=== PATIENT | female | born 1955 | race Caucasian/White ===

== ENCOUNTER → 2017-09-09 10:07 | Outpatient (CLI) | payer OTHER, SELFPAY ==
[2017-09-09 12:40] LABS: Anion Gap 7 (5-15); BUN 19 mg/dL (7-18); Calcium,Total 9.2 mg/dL (8.5-10.1); Chloride 108 mmol/L (98-107); Cholesterol 179 mg/dL (200); EST Glomerular Filtration Rate 67 mL/min (>60); Est Glom Filt Rate - Afr Amer 82 mL/min (>60); Glucose 88 mg/dL (74-106); High Density Lipoprotein 48 mg/dL; Potassium 4.2 mmol/L (3.5-5.1); Sodium Level 143 mmol/L (136-145); Triglycerides 62 mg/dL; Very Low Density Lipoprotein 12 mg/dL (5-40)
== END ==
PROVIDERS: Family Provider Family Medicine; PCP Family Medicine; Visit Provider Family Medicine
DX: R94.8 Abnormal results of function studies of other organs and systems (principal)
CPT/HCPCS: 36415; 80048; 80061

== ENCOUNTER → 2017-09-24 08:12 | Outpatient (CLI) | payer OTHER, SELFPAY | PROVIDERS: Family Provider Family Medicine; PCP Family Medicine; Visit Provider Family Medicine | DX: R94.8 Abnormal results of function studies of other organs and systems (principal) | CPT/HCPCS: 77080 ==

== ENCOUNTER → 2018-09-01 10:10 | Outpatient (CLI) | payer SELFPAY ==
--- NOTE | 2018-09-01 10:22 | MRI_ITS ---
HISTORY: HAHeadache, no response to antibiotic treatment x 6 weeks, h/o melanoma EXAMINATION: MR Brain W/O Contrast TECHNIQUE: Multiplanar and multisequence MR images of the brain were obtained without gadolinium. IV Contrast dosage and agent: None. COMPARISON: 06/23/16 MRI brain. FINDINGS: PARANASAL SINUSES AND MASTOID AIR CELLS: Clear. CALVARIUM: Unremarkable. INTRACRANIAL HEMORRHAGE: No evidence of intracranial hemorrhage. BRAIN PARENCHYMA: No acute infarct. Cerebrum, cerebellum and brainstem are unremarkable. Normal sella turcica, pituitary gland, infundibular stalk, optic chiasm and hypothalamus. The internal auditory canals are patent. No mass effect or midline shift. CSF SPACES: Appropriate for age. There is no hydrocephalus. Patent basal cisterns. VASCULAR SYSTEM: Normal flow voids in the major intracranial circulation. ORBITS: Both globes, extraocular muscles, optic nerves and retrobulbar fat appear unremarkable. MRI/Brain without Contrast IMPRESSION: Negative MRI Brain without contrast. No etiology for headache identified. at 1129 Reported and signed by: Niraj Franz MD Electronically Signed: Niraj Franz, at 11:28 EDT Tel , Service support ,
== END ==
PROVIDERS: Family Provider Family Medicine; PCP Family Medicine; Referring Provider Family Medicine; Visit Provider Family Medicine
DX: R51 Headache (principal)
CPT/HCPCS: 70551

== ENCOUNTER 2018-09-12 15:42 | Emergency (ER) | payer OTHER, SELFPAY ==
[2018-09-12 15:43] VITALS: BP 110/73; PULSE 79; RESP 14; TEMP 36.3; O2SAT 95; BMI 18.6
--- NOTE | 2018-09-12 16:19 | ED.DCSUM_ITS ---
History of Present Illness Chief Complaint: Head Injury Informant: Patient Onset: Today Context: Sudden Onset Current Severity: Mild Maximum Severity: Mild Narrative: The patient presents to the emergency department laceration on her posterior scalp. She states that she was doing gardening today. She states that she jumped on a shovel, it hit hard ground, she fell backwards. She struck her head against the ground. She did not lose consciousness. She denies any headaches, change in vision, nausea, vomiting. She is not on anticoagulants. Her last tetanus was within the past year. She states that she had some bleeding from the back of her scalp and presented to be evaluated. She denies other injury. Prior similar symptoms: No Recent Illness/Hospitalization: No Past Medical History - Allergies and Home Meds Allergies/Adverse Reactions: Allergies Sulfa (Sulfonamide Antibiotics) Allergy (Verified 09/12/18 15:44) Hives Primary Care Physician: Tu Lyle MD [Primary Care Provider] - Prior records reviewed: Yes Surgical History: no surgical history Lives: With Family Smoking Status: Never smoker Review of Systems General: Denies: Chills, Fever, Sweats Eyes: Denies: Visual changes - bilaterally, Diplopia ENT: Denies: Rhinorrhea, Sore throat Cardiovascular: Denies: Chest pain, Palpitations Respiratory: Denies: Dyspnea, Cough, Dyspnea on exertion Gastrointestinal: Denies: Abdominal pain, Nausea, Vomiting, Diarrhea, Melena, Hematochezia Genitourinary: Denies: Dysuria, Hematuria, Frequency Musculoskeletal: Denies: Back pain, Extremity Pain Skin: Denies: Rash, Wounds Neurological: Denies: Headache, Weakness, Numbness Physical Exam Vital Signs/Narrative: Vital Signs Temp Pulse Resp BP Pulse Ox 09/12/18 15:43 97.4 F L 79 14 110/73 95 Inital Vital Signs reviewed: Yes General: Well nourished, Well developed, No Acute Distress Head: Normocephalic, Trauma - 0.5 cm laceration to the posterior occiput. No step-off. Small hematoma. Eyes: Perrl, EOMI ENT: Moist mucous membranes, No rhinorrhea Neck: Supple, Nontender Cardiovascular: Regular rate, Regular rhythm, No murmurs Respiratory: No distress, CTA bilaterally, Chest nontender Abdomen: Soft, Nontender, Nondistended, Normal bowel sounds Back: Nontender, Normal Inspection Extremities: Nontender, No edema Skin: Normal color, No rash Neurological: Alert, Oriented x3, Cranial nerves II-XII grossly intact, Normal Strength, Normal Sensation Psychological: Normal affect, Normal Mood Diagnostic/Tx/Re-eval - Medical Decision Making The patient presents with a small laceration after head injury. She had no loss of consciousness. She is a GCS of 15. She has no distracting injury. Based on [place] head CT rules, I do not feel that imaging is necessary. Her tetanus is already up-to-date. The wound was anesthetized with lidocaine with epinephrine. It was cleaned. It was closed with one gut suture. She tolerated this without issue. She was counseled on local wound care. She will be discharged home. Impression 1. 0.5 cm scalp laceration with repair Procedures - Lacerations No standard instances Depth: Skin Shape: Linear Prep: Sterile Conditions, Shnancy-Clens Laceration repair: Irrigated, Lidocaine with epi, Skin sutures Irrigated (ml): 200 Number of Sutures/Norm: 1 Suture Information: Vicryl, 5-0 ED Disposition - Plan for ED Patient: Disposition: Home or Assisted Living Instructions: LACERATION, Scalp Referrals: Tu Lyle MD [Primary Care Provider] -
== END 2018-09-12 16:28 | disposition home or self-care (01) ==
LOC: ED 15:58
PROVIDERS: Emergency Provider Emergency Medicine; Family Provider Family Medicine; PCP Family Medicine
DX: S01.01XA Laceration without foreign body of scalp, initial encounter (principal); W18.39XA Other fall on same level, initial encounter; Y93.H2 Activity, gardening and landscaping; Y92.9 Unspecified place or not applicable
CPT/HCPCS: 12001; 99283

== ENCOUNTER → 2018-10-12 14:15 | Outpatient (CLI) | payer OTHER, SELFPAY ==
[2018-09-12 15:43] VITALS: BMI 18.6
== END ==
PROVIDERS: Family Provider Family Medicine; PCP Family Medicine; Referring Provider Family Medicine; Visit Provider Family Medicine
DX: R30.0 Dysuria (principal)
CPT/HCPCS: 87086

== ENCOUNTER → 2019-03-07 17:31 | Outpatient (CLI) | payer OTHER, SELFPAY | PROVIDERS: PCP Family Medicine; Visit Provider Nurse Practitioner Family | DX: R35.0 Frequency of micturition (principal) | CPT/HCPCS: 87086; 87088 ==

== ENCOUNTER → 2020-09-05 10:13 | Outpatient (CLI) | payer OTHER, SELFPAY ==
[2020-09-05 12:26] LABS: Absolute Lymphocyte Count 1.89 X10^3/uL (0.83-4.51); Absolute Neutrophil Count 3.4 X10^3/uL (2.0-7.7); Basophil# 0.03 X10^3/uL; Basophil% 0.5 % (0-1); Eosinophil# 0.19 X10^3/uL; Eosinophils% 3.2 % (0-5); Hematocrit 41.8 % (37-47); Hemoglobin 13.3 g/dL (12.0-15.0); Lymphocyte # 1.89 X10^3/ul (0.83-4.51); Mean Corp Hgb Conc 31.8 g/dL (32-36); Mean Corpuscular Hgb 28.4 pg (27.0-32.0); Mean Corpuscular Volume 89.1 fL (81-99); Mean Platelet Vol. 11.4 fl (6.2-12.0); Monocyte# 0.42 X10^3/uL; Monocyte% 7.1 % (0-10); NRBC Flagged by Analyzer 0 % (0-5); Neutrophil # 3.37 X10^3/uL (2.7-7.7); Platelet Count 106 K/mm3 (150-450); RBC Distribution Width CV 13.2 % (11.6-14.6); RBC Distribution Width SD 43.1 fl (35.1-43.9); Red Blood Count 4.69 M/mm3 (4.2-5.4); White Blood Count 5.9 K/mm3 (4.4-11.0)
[2020-09-05 12:50] LABS: ALB/GLOB Ratio 1.4 RATIO (0.9-2.4); AST(SGOT) 19 U/L (15-37); Alanine Aminotransfer ALT/SGPT 32 U/L (13-56); Alkaline Phosphatase 71 U/L (45-117); Anion Gap 4 (5-15); BUN 13 mg/dL (7-18); BUN/Creat Ratio 15.4 RATIO (10-20); Chloride 106 mmol/L (98-107); Cholesterol 208 mg/dL (200); Creatinine, Serum 0.84 mg/dL (0.55-1.02); EST Glomerular Filtration Rate 72 mL/min (>60); Est Glom Filt Rate - Afr Amer 88 mL/min (>60); Globulin 2.8 g/dL (2.2-4.2); Glucose 94 mg/dL (74-106); High Density Lipoprotein 45 mg/dL; Magnesium 2.4 mg/dL (1.6-2.6); Potassium 4.3 mmol/L (3.5-5.1); Protein, Total 6.8 g/dL (6.4-8.2); Sodium Level 140 mmol/L (136-145); Thyroid Stim Hormone (TSH) 1.56 uIU/mL (0.358-3.74); Triglycerides 109 mg/dL; Very Low Density Lipoprotein 22 mg/dL (5-40)
== END ==
PROVIDERS: PCP Family Medicine; Visit Provider Family Medicine
DX: Z13.220 Encounter for screening for lipoid disorders (principal); R55 Syncope and collapse
CPT/HCPCS: 36415; 80053; 80061; 83735; 84443; 85025

== ENCOUNTER → 2020-09-18 08:58 | Outpatient (CLI) | payer OTHER, SELFPAY ==
--- NOTE | 2020-09-18 17:29 | PCM.TILTTABL ---
Staff Staff: Jazz Peña and - (Gillian Goel) Summary Pre Test Resting HR: 88 Pre Test Resting BP: 127/68 Minimum Test HR: 47 Maximum Test HR: 116 Minimum Test BP: 0/0 Maximum Test BP: 127/68 Reason for Test Termination: Syncope Physician Tilt Table Report Patient's Physicians Primary Care Physician: Tu Lyle Indications/Diagnosis: Syncope Procedure Comments: The patient presented to the tilt table laboratory and was awake and alert and warm and dry. The baseline heart rate was 88 bpm with a baseline blood pressure 127/68 mmHg. The cardiac rhythm was sinus rhythm. The patient was placed in the 70 degree upright tilt table position for approximately 6 minutes. The patient was initially awake and alert and warm and dry. The initial heart rate was 84 bpm with a blood pressure 127/68 mmHg. The cardiac rhythm was sinus rhythm. The patient subsequently noted feeling like a hot flash , as well as feeling dizzy, and the sensation of going to pass out . The patient was subsequently noted to have a decline in heart rate to 47 bpm with an unobtainable blood pressure and appearing diaphoretic and lost consciousness. The cardiac rhythm was noted to be a marked sinus bradycardia/transient junctional rhythm with occasional premature supraventricular ectopic complexes. The patient was returned to the supine position. In the supine position the patient became awake and alert. The heart rate was 51 bpm with a blood pressure of 68/50 mmHg. The cardiac rhythm was sinus rhythm. The patient received IV fluids. The patient was monitored and was subsequently awake and alert and warm and dry. The heart rate was 73 bpm with a blood pressure 109/64 mmHg. The cardiac rhythm remains sinus rhythm. The patient was reported as having returned to her baseline status. She was subsequently released from the tilt table laboratory. Summary: 70 degree upright tilt table study considered abnormal and positive for vasovagal/neurocardiogenic (cardioinhibitory and vasodepressor) syncope. This note was generated using a voice recognition system and there may be incorrect words, spelling or punctuation that were not noted when reviewing the office note prior to saving.
[2020-09-18 17:36] VITALS: BP 0/0; BP 127/68
== END ==
PROVIDERS: PCP Family Medicine; Referring Provider Family Medicine; Visit Provider Family Medicine
DX: R55 Syncope and collapse (principal)
CPT/HCPCS: 93660; J7040; A4216

== ENCOUNTER → 2021-01-14 18:16 | Outpatient (CLI) | payer OTHER, SELFPAY | PROVIDERS: PCP Family Medicine; Referring Provider Family Medicine; Visit Provider Family Medicine | DX: R30.0 Dysuria (principal) | CPT/HCPCS: 87086; 87088 ==

== ENCOUNTER 2021-05-09 18:05 | Outpatient (CLI) | payer BC, SELFPAY | END 2021-05-09 23:59 | disposition home or self-care (01) | PROVIDERS: PCP Family Medicine; Visit Provider Family Medicine | DX: N39.0 Urinary tract infection, site not specified (principal) | CPT/HCPCS: 87086 ==

== ENCOUNTER 2021-05-20 15:06 | Outpatient (CLI) | payer BC, SELFPAY | END 2021-05-20 23:59 | disposition home or self-care (01) | LOC: LABSPEC 15:08 | PROVIDERS: PCP Family Medicine; Visit Provider Family Medicine | DX: R30.0 Dysuria (principal) | CPT/HCPCS: 87077; 87086; 87088; 87186 ==

== ENCOUNTER 2021-09-25 07:46 | Day surgery (SDC) | payer BC, SELFPAY ==
[2021-09-25] VITALS (7 sets, daily range): BP systolic 97–111; BP diastolic 67–80; PULSE 84–93; RESP 14–18; TEMP 36.3–36.6; O2SAT 98–100; BMI 17.9
[2021-09-25] MEDS: Lactated Ringers 1,000 ML 15 ML IV (08:00)
--- NOTE | 2021-09-25 08:39 | H&P.OPEN ---
HPI - General HPI Narrative MARITZA MC, is a 66 F who presents for screening colonoscopy. Patient's last colonoscopy was in 2011 negative per patient. Patient denies any family history of colon cancer. Patient has bowel movements daily denies any blood. Patient denies any chronic abdominal pain/nausea/vomiting/reflux. [facility] Medical History (Updated 09/23/21 @ 11:49 by Ashlee Weber) Back pain Cancer Head ache Loss of consciousness Non-smoker Peripheral neuropathy Post-menopausal Tilt table evaluation Vasovagal syncope Wears glasses Home Medications nortriptyline 10 mg capsule 30 mg PO QHS 05/30/21 [History Last Taken Unknown] alendronate 70 mg tablet (Fosamax) 70 mg PO BRADLEY 08/05/21 [History Last Taken Unknown] alpha lipoic acid 600 mg capsule 600 mg PO BID 08/05/21 [History Last Taken Unknown] ascorbic acid (vitamin C) 1,000 mg capsule,extended release 1,000 cap PO DAILY 08/05/21 [History Last Taken Unknown] Lactobacillus 40-Bifidobact 3-S.thermophilus 100 billion cell capsule (Probiotic) 1 cap PO DAILY bowel health 09/23/21 [History Last Taken Unknown] d-mannose 500 mg capsule 500 mg PO DAILY frequent UTI 09/23/21 [History Last Taken Unknown] Allergy/AdvReac Type Severity Reaction Status Date / Time Sulfa (Sulfonamide Allergy Hives Verified 09/25/21 08:11 Antibiotics) Surgical History (Updated 08/05/21 @ 09:55 by Milagros Mtz) Hx of colonoscopy Hx of wisdom tooth extraction Social History Smoking Status: Never smoker Past Medical/Surgical History Planned Operation Planned Operative Procedure/s: CSCOPE OA Previous Hospitalizations/Surgeries HX Hospitalizations: No Any Problems With Anesthesia: No You/Your Family Experience Fever (Hyperthermia) With Anes: No Cholinesterase deficiency: No Cardiovascular Hx of Irregular Heartbeat and/or Afib: No Hx Heart Attack: No Hx Congestive Heart Failure: No Hx Hypertension: No Hx Pacemaker: No Respiratory Hx Chronic Obstructive Pulmonary Disease (COPD): No Hx Asthma: No Hx Emphysema: No Hx Sleep Apnea: No Hx Respiratory Tract Infection/Cold (presently): No Do You Snore Loudly (louder than talking or can be heard): No Do You Often Feel Tired/ Fatigued/ Sleepy Dring Daytime?: No Has Anyone Observed You Stop Breathing During Sleep?: No Result (for STOP score): Negative Smoking Status: Never smoker Gastrointestinal Hx Gastroesophageal Reflux: No Hx Ulcer: No Neurological Hx Seizures: No Hx Head/Neck Injury: No Hx Headaches: Yes Hx Back Injury/Pain: No Does patient have nerve stimulator: No Reproduction : No Miscellaneous Recent Exposure to Contagious Disease: No Allergies Sulfa (Sulfonamide Antibiotics) Allergy (Verified 09/25/21 08:11) Hives Discharge Is Pt Admitted From a Care Home, or a Senior Living: No After D/C, Where Do you Plan to Go: Return Home Vital Signs Vital Signs Vital Signs: 09/25/21 08:11 09/25/21 08:11 Temperature 97.5 F L Temperature Source Temporal Pulse Rate 93 Respiratory Rate 18 Respiratory Pattern Normal Blood Pressure 111/80 Blood Pressure Mean 90 Blood Pressure Source Monitor Blood Pressure Position Semi-Fowlers Blood Pressure Location Left Arm Pulse Ox 100 Oxygen Delivery Method Room Air Weight Weight: 101 lb 6.602 oz Body Mass Index (BMI) 17.9 Physical Exam Const alert, oriented x3 and no apparent distress HEENT normocephalic and head/scalp atraumatic Resp normal respiratory effort Cardio regular rate GI soft to palpation and non-tender; Negative for non-distended Palpation: Negative for guarding Extremity no clubbing, cyanosis or edema Neuro CN's II-XII intact bilaterally Psych mental status grossly normal Assessment & Plan Assessment/Plan (1) Encounter for screening for malignant neoplasm of colon: Procedure Criteria Type of Procedure Procedure Type: Elective Elective Risks - COVID COVID Risk Discussion: The surgeon/proceduralist and patient have discussed in detail the risk of exposure to and/or potential harm posed by the COVID-19 virus with having a surgery/procedure at this time versus the risk of delaying the surgery/procedure. It is not possible to know either the risk of delaying the surgery or procedure or chance of getting an infection with perfect accuracy, but a joint decision was made between the patient and the surgeon/proceduralist to proceed at this time with the scheduled surgery/procedure as indicated on the consent form. Surgery Risks - Colonoscopy Risks Include but are not Limited To: Risks include but are not limited to: Bleeding, perforation requiring further surgery, inability to complete colonoscopy requiring barium enema.
--- NOTE | 2021-09-25 09:00 | COLBX_PTH ---
PATIENT: MARITZA MC LOC: EN U#:[id number] AGE/SX: 66/F ROOM: RE09/25/[address]: Dr. Alice Yancey MD : 1955 BED: DIS: 09/25/2021 SPEC #: [id number] RECD: 09/25/21 11:04 STATUS: JASON ANA #: [id number] HEMA: 09/25/21 09:[address]: Alice Yancey DEPT: SURGICAL PATHOLOGY RECD BY: Lilo Morales ENTERED: 09/25/21 11:44 SP TYPE: COLON BX OTHR DR: Dr. Tu Lyle MD Tissues: Transverse colon Procedures: Surgery Specimen Level IV HEADER OPERATION: Colonoscopy ? open access (MAC) with biopsy PRE-OP DIAGNOSIS: Screening TISSUE SUBMITTED: Biopsy of transverse colon polyp MICROSCOPIC DIAGNOSIS Transverse colon polyp, biopsy: Hyperplastic polyp. AM:kathleen 09/26/2021 MICROSCOPIC DESCRIPTION Slides are reviewed. GROSS DESCRIPTION Received in fixative is one container labeled with the patient's name and designated biopsy of transverse colon polyp. The specimen consists of one irregular fragment of light saldana soft tissue that measures 0.3 x 0.2 x 0.1 cm. The specimen is totally submitted in one cassette. / SJ:rg 09/25/2021 TC:5 CPT: 48601
--- NOTE | 2021-09-25 09:37 | OP.COLON_ITS ---
Patient Name: Bobbi Jain Procedure Date: 09/25/2021 8:47 AM Date of : 1955 Age: 66 Procedure: Colonoscopy Indications: Screening for colorectal malignant neoplasm Providers: Alice Yancey MD Medicines: Monitored Anesthesia Care Patient Profile: This is a 66 year old female. Last Colonoscopy: 2011. Complications: No immediate complications. Procedure: Pre-Anesthesia Assessment: - Prior to the procedure, a History and Physical was performed, and patient medications and allergies were reviewed. The patient's tolerance of previous anesthesia was also reviewed. The risks and benefits of the procedure and the sedation options and risks were discussed with the patient. All questions were answered, and informed consent was obtained. Prior Anticoagulants: The patient has taken no previous anticoagulant or antiplatelet agents. ASA Grade Assessment: Per anesthesia. After reviewing the risks and benefits, the patient was deemed in satisfactory condition to undergo the procedure. After I obtained informed consent, the scope was passed under direct vision. Throughout the procedure, the patient's blood pressure, pulse, and oxygen saturations were monitored continuously. The Colonoscope was introduced through the anus and advanced to the cecum, identified by the appendiceal orifice, ileocecal valve and palpation. The colonoscopy was technically difficult and complex due to a tortuous colon. Successful completion of the procedure was aided by applying abdominal pressure. The patient tolerated the procedure well. The quality of the bowel preparation was good. Scope In: 8:56:12 AM Scope Withdrawal Time 0 hours 13 minutes 44 seconds Scope Out: 9:30:59 AM Total Procedure Duration Time 0 hours 34 minutes 47 seconds Findings: The perianal and digital rectal examinations were normal. A less than 5 mm polyp was found in the transverse colon. The polyp was sessile. The polyp was removed with a cold biopsy forceps. Resection and retrieval were complete. The exam was otherwise without abnormality on direct and retroflexion views. Impression: - One less than 5 mm polyp in the transverse colon, removed with a cold biopsy forceps. Resected and retrieved. - The examination was otherwise normal on direct and retroflexion views. Recommendation: - Discharge patient to home. - Resume previous diet. - Continue present medications. - Await pathology results. - Repeat colonoscopy in 5-10 years for surveillance based on pathology results. Procedure Code(s): --- Professional --- 43042, PT, Colonoscopy, flexible; with biopsy, single or multiple Diagnosis Code(s): --- Professional --- Z12.11, Encounter for screening for malignant neoplasm of colon D12.3, Benign neoplasm of transverse colon (hepatic flexure or splenic flexure) CPT copyright 2017 [employer]. All rights reserved. The codes documented in this report are preliminary and upon print operator review may be revised to meet current compliance requirements. MD Alice Abdul MD 09/25/2021 9:37:17 AM This report has been signed electronically. Number of Addenda: 0 Note Initiated On: 09/25/2021 8:47 AM
--- NOTE | 2021-09-25 09:38 | OP.CCLET_ITS ---
09/25/2021 Tu Lyle MD [address] [place] [address] Re : Colonoscopy procedure for Bobbi Jain Dear Dr. Lyle This procedure was performed on Saturday, September 25, 2021. My impressions and recommendations are as follows: Impressions : - One less than 5 mm polyp in the transverse colon, removed with a cold biopsy forceps. Resected and retrieved. - The examination was otherwise normal on direct and retroflexion views. Recommendations : - Discharge patient to home. - Resume previous diet. - Continue present medications. - Await pathology results. - Repeat colonoscopy in 5-10 years for surveillance based on pathology results. My findings are described in the full procedure note, which is enclosed. If I can be of further assistance, please feel free to contact me at Doctor phone number(s): , Work: . Sincerely, MD Alice Abdul MD 09/25/2021 9:37:17 AM This report has been signed electronically.
== END 2021-09-25 10:31 | disposition home or self-care (01) ==
LOC: EN 07:51 → AC 07:52
PROVIDERS: PCP Family Medicine; Referring Provider Family Medicine; Visit Provider Surgery
PROC: 0DJD8ZZ Inspection of Lower Intestinal Tract, Via Natural or Artificial Opening Endoscopic (ICD-10-PCS; CPT 45378; principal; 2021-09-25 08:55)
DX: Z12.11 Encounter for screening for malignant neoplasm of colon (principal); K63.5 Polyp of colon; Q43.8 Other specified congenital malformations of intestine
CPT/HCPCS: 45380; 88305; J7120; J2405

== ENCOUNTER → 2021-12-24 | Outpatient (CLI) | payer BC, SELFPAY ==
[2021-12-24 17:57] LABS: Mucous, Urine 0 SEEN /hpf (<or=2+); Red Blood Cells-Urine 0 SEEN /hpf (0-5); Squamous Epithelial Cells - UA 0 SEEN /hpf (5-10)
[2021-12-24 18:29] LABS: Color, Urine Yellow (Yellow); Glucose, Dipstick Normal (Normal); Ketone-Dipstick Negative (Negative); Leukocyte Esterase-Dipstick 500 /ul (Negative); Nitrite-Dipstick Negative (Negative); Occult Blood-Urine 25 /ul (Negative); Protein-Dipstick Negative (Negative); Urine Bilirubin Dipstick Negative (Negative); Urine Clarity Clear (Clear); Urine Urobilinogen Normal (Normal)
[2021-12-24 18:41] LABS: Bacteria RARE /hpf (None Seen); White Blood Cells 5-10 SEEN /hpf (0-5)
== END | disposition home or self-care (01) ==
PROVIDERS: PCP Family Medicine; Visit Provider Nurse Practitioner Family
DX: R39.89 Other symptoms and signs involving the genitourinary system (principal)
CPT/HCPCS: 81001; 87086

== ENCOUNTER → 2022-01-23 | Outpatient (CLI) | payer BC, SELFPAY ==
[2022-01-23 18:08] LABS: Vitamin D,25 Hydroxy 24.4 ng/mL
[2022-01-23 18:12] LABS: Anion Gap 6 (5-15); BUN 18 mg/dL (7-18); BUN/Creat Ratio 20.3 RATIO (10-20); Calcium,Total 9.2 mg/dL (8.5-10.1); Chloride 105 mmol/L (98-107); Cholesterol 210 mg/dL (200); Creatinine, Serum 0.89 mg/dL (0.55-1.02); EST Glomerular Filtration Rate 68 mL/min (>60); Est Glom Filt Rate - Afr Amer 82 mL/min (>60); Glucose 89 mg/dL (74-106); High Density Lipoprotein 43 mg/dL; Potassium 4.8 mmol/L (3.5-5.1); Sodium Level 139 mmol/L (136-145); Triglycerides 115 mg/dL; Very Low Density Lipoprotein 23 mg/dL (5-40)
== END | disposition home or self-care (01) ==
LOC: MFPLAB 14:55
PROVIDERS: PCP Family Medicine; Referring Provider Family Medicine; Visit Provider Family Medicine
DX: Z00.00 Encounter for general adult medical examination without abnormal findings (principal)
CPT/HCPCS: 36415; 80048; 80061; 82306

== ENCOUNTER → 2022-02-19 | Outpatient (CLI) | payer BC, SELFPAY ==
--- NOTE | 2022-02-19 10:52 | BD_ITS ---
STUDY: DUAL ENERGY X-RAY ABSORPTIOMETRY / DXA REASON FOR EXAM: Female, 66 years old. Z780 TECHNIQUE: Bone Mineral Density (BMD) measurements of lumbar spine and bilateral hips were obtained. COMPARISON: Comparison is made with prior study dated 09/24/2017. FINDINGS: Lumbar Spine (L1-L4): g/cm2 (0.722) / T-score (-3.4) / Z-score (-1.6) Findings are suggestive of osteoporosis with a high fracture risk. Left Femur Total: g/cm2 (0.724) / T-score (-1.8) / Z-score (-0.6) Left Femoral Neck: g/cm2 (0.668) / T-score (-1.6) / Z-score (-0.1) Right Femur Total: g/cm2 (0.734) / T-score (-1.7) / Z-score (-0.5) Right Femoral Neck: g/cm2 (0.672) / T-score (-1.6) / Z-score (-0.1) The T-Scores on the most recent prior examination were: Lumbar Spine (L1-L4): There has been worsening of bone density since the previous examination. Left Femur Total: which represents an improvement of 4.8%. Right Femur Total: which represents an improvement of 4.7%. BD/Dexa Bone Density Study IMPRESSION: The patient is considered osteoporotic as outlined below according to World Wil Organization (WHO) criteria with a high fracture risk. There has been improvement of bone density since the previous examination. Reference Information: The T-score is the number of standard deviations above or below the standard which is normal for young adults at their peak bone mineral density. The World Health Organization (WHO) interprets the T-scores as follows: Above -1 Normal bone density Between -1 and -2.5 Osteopenia Equal to / or below -2.5 Osteoporosis As a practical clinical guideline, osteopenia may be graded as follows: Mild -1 through -1.5 Moderate -1.6 through -2.0 Severe -2.1 through -2.4 The Z-score is the number of standard deviations above or below age-matched controls. A Z-score of less than -1.5 would be considered abnormal. References: 1. NIH Osteoporosis and Related Bone Diseases www osteo.org 2. International Society for Clinical Densitometry www iscd.org 3. National Osteoporosis Foundation www nof.org Electronically Signed: Serafin Tejeda MD at 11:03 EST ,
== END | disposition home or self-care (01) ==
PROVIDERS: PCP Family Medicine; Visit Provider Family Medicine
DX: Z00.00 Encounter for general adult medical examination without abnormal findings (principal); M85.80 Other specified disorders of bone density and structure, unspecified site; M81.0 Age-related osteoporosis without current pathological fracture
CPT/HCPCS: 77080

== ENCOUNTER → 2022-06-10 | Outpatient (CLI) | payer MEDICARE, OTHER, SELFPAY ==
[2022-06-10 13:35] LABS: Vitamin D,25 Hydroxy 59.7 ng/mL
[2022-06-10 13:57] LABS: ALB/GLOB Ratio 1.4 RATIO (0.9-2.4); AST(SGOT) 19 U/L (15-37); Alanine Aminotransfer ALT/SGPT 25 U/L (13-56); Albumin, Serum 4.2 g/dL (3.2-5.0); Alkaline Phosphatase 68 U/L (45-117); Anion Gap 3 (5-15); BUN 16 mg/dL (7-18); BUN/Creat Ratio 18.6 RATIO (10-20); Calcium,Total 8.7 mg/dL (8.5-10.1); Chloride 105 mmol/L (98-107); Cholesterol 194 mg/dL (200); Creatinine, Serum 0.86 mg/dL (0.55-1.02); EST Glomerular Filtration Rate 70 mL/min (>60); Est Glom Filt Rate - Afr Amer 85 mL/min (>60); Globulin 3.1 g/dL (2.2-4.2); Glucose 91 mg/dL (74-106); High Density Lipoprotein 46 mg/dL; Potassium 3.7 mmol/L (3.5-5.1); Protein, Total 7.3 g/dL (6.4-8.2); Sodium Level 136 mmol/L (136-145); Thyroid Stim Hormone (TSH) 1.75 uIU/mL (0.358-3.74); Triglycerides 155 mg/dL; Very Low Density Lipoprotein 31 mg/dL (5-40)
== END | disposition home or self-care (01) ==
LOC: BIMLAB 09:35
PROVIDERS: PCP Family Medicine; Visit Provider Internal Medicine Endocrinology, Diabetes & Metabolism
DX: M81.0 Age-related osteoporosis without current pathological fracture (principal); E55.9 Vitamin D deficiency, unspecified; I10 Essential (primary) hypertension
CPT/HCPCS: 36415; 80053; 80061; 82306; 84443

== ENCOUNTER 2022-06-23 14:26 | Outpatient (CLI) | payer MEDICARE, OTHER, SELFPAY ==
[2022-06-23 14:45] VITALS: BP 106/67; PULSE 74; RESP 16; TEMP 36.6; O2SAT 100; BMI 18.6
[2022-06-23] MEDS: Romosozumab-AQQG 210 MG/2.34 ML Syringe SQ (14:52)
== END 2022-06-23 14:27 | disposition home or self-care (01) ==
PROVIDERS: PCP Family Medicine; Referring Provider Internal Medicine Endocrinology, Diabetes & Metabolism; Visit Provider Internal Medicine Endocrinology, Diabetes & Metabolism
DX: M81.0 Age-related osteoporosis without current pathological fracture (principal); E55.9 Vitamin D deficiency, unspecified
CPT/HCPCS: 96372; J3111

== ENCOUNTER 2022-07-21 14:21 | Outpatient (CLI) | payer MEDICARE, OTHER, SELFPAY ==
[2022-07-21 14:42] VITALS: BP 110/64; PULSE 71; RESP 16; TEMP 35.9; O2SAT 98; BMI 18.6
[2022-07-21] MEDS: Romosozumab-AQQG 210 MG/2.34 ML Syringe SQ (14:45)
== END 2022-07-21 14:22 | disposition home or self-care (01) ==
PROVIDERS: PCP Family Medicine; Referring Provider Internal Medicine Endocrinology, Diabetes & Metabolism; Visit Provider Internal Medicine Endocrinology, Diabetes & Metabolism
DX: M81.0 Age-related osteoporosis without current pathological fracture (principal); E55.9 Vitamin D deficiency, unspecified
CPT/HCPCS: 96372; J3111

== ENCOUNTER 2022-08-22 11:25 | Outpatient (CLI) | payer MEDICARE, OTHER, SELFPAY ==
[2022-08-22 11:39] VITALS: BP 94/65; PULSE 79; RESP 16; TEMP 36.5; O2SAT 97; BMI 18.6
[2022-08-22] MEDS: Romosozumab-AQQG 210 MG/2.34 ML Syringe SQ (11:42)
== END 2022-08-22 11:26 | disposition home or self-care (01) ==
LOC: MEDOUTP 11:25
PROVIDERS: PCP Family Medicine; Referring Provider Internal Medicine Endocrinology, Diabetes & Metabolism; Visit Provider Internal Medicine Endocrinology, Diabetes & Metabolism
DX: M81.0 Age-related osteoporosis without current pathological fracture (principal); E55.9 Vitamin D deficiency, unspecified
CPT/HCPCS: 96372; J3111

== ENCOUNTER → 2022-09-02 | Outpatient (CLI) | payer MEDICARE, OTHER, SELFPAY | END | disposition home or self-care (01) | LOC: LABSPEC 15:46 | PROVIDERS: PCP Family Medicine; Referring Provider Family Medicine; Visit Provider Family Medicine | DX: R39.89 Other symptoms and signs involving the genitourinary system (principal) | CPT/HCPCS: 87086; 87088 ==

== ENCOUNTER 2022-09-18 09:57 | Outpatient (CLI) | payer MEDICARE, OTHER, SELFPAY ==
[2022-09-18 10:07] VITALS: BP 108/65; PULSE 81; RESP 16; O2SAT 97; BMI 17.6
[2022-09-18] MEDS: Romosozumab-AQQG 210 MG/2.34 ML Syringe SQ (10:13)
== END 2022-09-18 09:58 | disposition home or self-care (01) ==
LOC: MEDOUTP 09:57
PROVIDERS: PCP Family Medicine; Referring Provider Internal Medicine Endocrinology, Diabetes & Metabolism; Visit Provider Internal Medicine Endocrinology, Diabetes & Metabolism
DX: M81.0 Age-related osteoporosis without current pathological fracture (principal); E55.9 Vitamin D deficiency, unspecified
CPT/HCPCS: 96372; J3111

== ENCOUNTER → 2022-09-19 | Outpatient (CLI) | payer MEDICARE, OTHER, SELFPAY ==
--- NOTE | 2022-09-19 14:50 | US_ITS ---
EXAM: US RETROPERITONEAL LIMITED, RENAL CLINICAL INDICATION: UTI TECHNIQUE: Limited grayscale and color Doppler sonographic evaluation of the retroperitoneum was performed. COMPARISON: No relevant prior studies available. FINDINGS: RIGHT KIDNEY: 9 cm x 4 cm x 3.5 cm. No hydronephrosis. Mild thickened cortex. No shadowing calculus. 2 cysts, 1.7 cm x 1.8 cm x 1.7 cm, and 0.7 cm maximum diameter respectively. No perinephric collection is demonstrated. LEFT KIDNEY: 10.3 cm x 4.7 cm x 4.2 cm. No hydronephrosis. Mild thin cortex. No shadowing calculus. No focal lesion. 2 cysts, measuring 1.5 cm x 1.7 cm x 1.2 cm and 1.2 cm x 1.4 cm x 1.2 cm respectively. No perinephric collection is demonstrated. BLADDER: Bilateral ureteral jets are demonstrated in the bladder. Moderately distended bladder, calculated bladder volume 208 cc. Measurement of 8.8 cm maximum diameter in size. Thin wall. US/Kidney and Bladder IMPRESSION: No hydronephrosis. Bilateral renal cysts. Moderately distended urinary bladder. Electronically Signed: Shannen Mclaughlin MD at 7:52 EDT ,
== END | disposition home or self-care (01) ==
LOC: US 14:49
PROVIDERS: PCP Family Medicine; Referring Provider Urology; Visit Provider Urology
DX: N39.0 Urinary tract infection, site not specified (principal)
CPT/HCPCS: 76770

== ENCOUNTER 2022-10-17 10:54 | Outpatient (CLI) | payer MEDICARE, OTHER, SELFPAY ==
[2022-10-17 11:09] VITALS: BP 106/75; PULSE 80; RESP 16; TEMP 36.1; O2SAT 100; BMI 17.6
[2022-10-17] MEDS: Romosozumab-AQQG 210 MG/2.34 ML Syringe SQ (11:11)
== END 2022-10-17 10:55 | disposition home or self-care (01) ==
LOC: MEDOUTP 10:55
PROVIDERS: PCP Family Medicine; Referring Provider Internal Medicine Endocrinology, Diabetes & Metabolism; Visit Provider Internal Medicine Endocrinology, Diabetes & Metabolism
DX: M81.0 Age-related osteoporosis without current pathological fracture (principal); E55.9 Vitamin D deficiency, unspecified
CPT/HCPCS: 96372; J3111

== ENCOUNTER 2022-11-28 10:57 | Outpatient (CLI) | payer MEDICARE, OTHER, SELFPAY ==
[2022-11-28 11:11] VITALS: BP 114/67; PULSE 83; RESP 16; TEMP 35.9; O2SAT 100; BMI 17.6
[2022-11-28] MEDS: Romosozumab-AQQG 210 MG/2.34 ML Syringe SQ (11:12)
== END 2022-11-28 10:58 | disposition home or self-care (01) ==
LOC: MEDOUTP 10:58
PROVIDERS: PCP Family Medicine; Referring Provider Internal Medicine Endocrinology, Diabetes & Metabolism; Visit Provider Internal Medicine Endocrinology, Diabetes & Metabolism
DX: M81.0 Age-related osteoporosis without current pathological fracture (principal); E55.9 Vitamin D deficiency, unspecified
CPT/HCPCS: 96372; J3111

== ENCOUNTER 2022-12-26 10:52 | Outpatient (CLI) | payer MEDICARE, OTHER, SELFPAY ==
[2022-12-26 11:11] VITALS: BP 123/69; PULSE 82; RESP 16; TEMP 36.4; BMI 17.6
[2022-12-26] MEDS: Romosozumab-AQQG 210 MG/2.34 ML Syringe SQ (11:14)
== END 2022-12-26 10:53 | disposition home or self-care (01) ==
LOC: MEDOUTP 10:52
PROVIDERS: PCP Family Medicine; Referring Provider Internal Medicine Endocrinology, Diabetes & Metabolism; Visit Provider Internal Medicine Endocrinology, Diabetes & Metabolism
DX: M81.0 Age-related osteoporosis without current pathological fracture (principal); E55.9 Vitamin D deficiency, unspecified
CPT/HCPCS: 96372; J3111

== ENCOUNTER 2023-01-23 08:31 | Outpatient (CLI) | payer MEDICARE, OTHER, SELFPAY ==
[2023-01-23 08:47] VITALS: BP 102/61; PULSE 77; RESP 16; TEMP 36.2; O2SAT 99; BMI 17.6
[2023-01-23] MEDS: Romosozumab-AQQG 210 MG/2.34 ML Syringe SC (08:52)
== END 2023-01-23 08:32 | disposition home or self-care (01) ==
LOC: MEDOUTP 08:31
PROVIDERS: PCP Family Medicine; Referring Provider Internal Medicine Endocrinology, Diabetes & Metabolism; Visit Provider Internal Medicine Endocrinology, Diabetes & Metabolism
DX: M81.0 Age-related osteoporosis without current pathological fracture (principal); E55.9 Vitamin D deficiency, unspecified
CPT/HCPCS: 96372; J3111

== ENCOUNTER 2023-02-20 10:57 | Outpatient (CLI) | payer MEDICARE, OTHER, SELFPAY ==
[2023-02-20 11:30] VITALS: BP 112/61; PULSE 79; RESP 16; TEMP 36.3; O2SAT 98
[2023-02-20] MEDS: Romosozumab-AQQG 210 MG/2.34 ML Syringe SC (11:37)
== END 2023-02-20 10:58 | disposition home or self-care (01) ==
LOC: MEDOUTP 10:58
PROVIDERS: PCP Family Medicine; Referring Provider Internal Medicine Endocrinology, Diabetes & Metabolism; Visit Provider Internal Medicine Endocrinology, Diabetes & Metabolism
DX: M81.0 Age-related osteoporosis without current pathological fracture (principal); E55.9 Vitamin D deficiency, unspecified
CPT/HCPCS: 96372; J3111

== ENCOUNTER 2023-03-26 13:46 | Outpatient (CLI) | payer MEDICARE, OTHER, SELFPAY ==
[2023-03-26 13:54] VITALS: BP 126/75; PULSE 83; RESP 16; TEMP 36.6; O2SAT 98; BMI 18.2
[2023-03-26] MEDS: Romosozumab-AQQG 210 MG/2.34 ML Syringe SC (14:00)
--- OUTSIDE RECORDS SUMMARY | 2023-03-26 16:17 | XMS RPT_ITS | CCD ---
Author Name Unknown Address [address] [place] [address] Organization [facility] Care Team Providers Care Apparel Manager Name Role Phone Brando Cr Attending Unavail able *SELF, REFERRED Referring Unavailable Tu Kevin Primary Care Unavailable Dariela BHATIA, Tu Velazquez Primary Care Provider [phone]( [phone] Tu Kevin MD Primary Care Provider Tu Kevin MD Primary Care Provider CASANDRA SOW Attending Unavailable TU KEVIN Primary Care Unavailable GEOFF CARLSON Referring Unavailable TU KEVIN Primary Care Unavailable GEOFF CARLSON Attending Unavailable TU KEVIN Primary Care Unavailable GEOFF CARLSON Attending Unavailable TU KEVIN Primary Care Unavailable GEOFF CARLSON Referring Unavailable Allergies Allergy Classification Reported Allergen(s) Allergy Type Date of Onset Reaction(s) Facility (7 sources) Sulfonamides (Antibiotic); Translations: [SULFA (SULFONAMIDE ANTIBIOTICS)] Drug Intolerance 5 [facility] Work Phone: Medications Current Medications Medication Drug Class(es) Dates Sig (Normalized) Sig (Original) cephalexin 500 mg oral capsule (2 sources) Cephalosporin Antibacterial Start: 01-15-2022 End: 01-22-2022 take 1 capsule by mouth twice daily cephALEXin (KEFLEX) 500 mg capsule Take 1 capsule by mouth twice daily for 7 days. 14 capsule 0 01/15/2022 01/22/2022 Active Completed/Discontinued Medications Medication Drug Class(es) Dates Sig (Normalized) Sig (Original) alendronic acid 70 mg oral tablet (5 sources) Bisphosphonate Start: 09-01-2016 End: 01-12-2023 take 3 tablets by mouth every week alendronate (FOSAMAX) 70 mg tablet Take by mouth once each week. 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: 07-08-2016 07-08-2016 Chronic Other screening for suspected conditions (not mental disorders or infectious disease) (1 source) Encounter for screening mammogram for malignant neoplasm of breast; Translations: [Encounter for screening mammogram for breast cancer] Onset: 01-12-2023 Episodic Prolapse of female genital organs (1 source) Incomplete uterovaginal prolapse; Translations: [Uterovaginal prolapse, incomplete] Onset: 03-12-2023 Chronic Results Test Name Value Interpretation Reference Range Facil ity Vital Signs Date Time Vital Sign Value Performing Clinician Faci lity 01-12-2023 08:22-0500 Body height 159.4 cm Geoff Carlson MD Work Phone: [facility] 01-12-2023 08:22-0500 Body weight 46.72 kg Geoff Carlson MD Work Phone: [facility] 01-12-2023 08:22-0500 Diastolic blood pressure 62 mm[Hg] Geoff Carlson MD Work Phone: [facility] 01-12-2023 08:22-0500 Systolic blood pressure 110 mm[Hg] Geoff Carlson MD Work Phone: [facility] 01-15-2022 18:54-0500 Body temperature 96.91 [degF] Lazara Larry CENTRAL OFFICE INSTALLER.[employer] Work Phone: [facility] 01-15-2022 18:54-0500 Body weight 49.9 kg Lazara Larry APRN.[employer] Work Phone: [facility] 01-15-2022 18:54-0500 Diastolic blood pressure 72 mm[Hg] Lazara Larry CENTRAL OFFICE INSTALLER.[employer] Work Phone: [facility] 01-15-2022 18:54-0500 Heart rate 74 /min Lazarajamey Larry CENTRAL OFFICE INSTALLER.[employer] Work Phone: [facility] 01-15-2022 18:54-0500 Respiratory rate 16 /min Lazarafrancine Larry CENTRAL OFFICE INSTALLER.[employer] Work Phone: [facility] 01-15-2022 18:54-0500 SaO2% (BldA) [Mass fraction] 95 % Lazara Larry CENTRAL OFFICE INSTALLER.[employer] Work Phone: [facility] 01-15-2022 18:54-0500 Systolic blood pressure 124 mm[Hg] Lazarafrancine Larry CENTRAL OFFICE INSTALLER.[employer] Work Phone: [facility] Encounters Encounter Date Encounter Type Care Provider Facility Start: 03-12-2023 End: 03-12-2023 ambulatory CASANDRA SOW Facility:[facility] Start: 02-18-2023 End: 02-18-2023 ambulatory TU KEVIN Facility:[facility] Start: 01-12-2023 Documentation procedure Mammog doc Coordinator [facility] Start: 01-12-2023 Letter encounter Mammography Coordinator [facility] Department Start: 01-12-2023 End: 01-12-2023 ambulatory TU KEVIN Facility:[facility] Start: 01-12-2023 End: 01-12-2023 Patient encounter procedure Geoff Carlson MD Work Phone: OB/Gynecology Procedures Date Procedure Procedure Detail Performing Clinician Start: 01-15-2022 Urnls dip stick/tabl et rgnt auto w/o microscopy Dorina Johnson PA-C Work Phone: Start: 11-22-2021 End: 11-22-2021 Screening mammography bi 2-view breast inc cad Geoff Carlson MD Work Phone: Start: 10-15-2021 Colonoscopy Lazara faustin CENTRAL OFFICE INSTALLER.[employer] Work Phone: Start: 02-25-2013 Lipid 1996 panel - S frank or Plasma Geoff Carlson MD Work Phone: Start: 04-30-2011 Colonoscopy Screen Wst r Plan of Treatment Date Care Activity Detail Author Start: 10-16-2031 Colonoscopy COLONOSCOPY [facility] Start: 10-16-2031 COLORECTAL CANCER SCREENING COLORECTAL CANCER SCREENING [facility] Start: 02-27-2028 Urine microalbumin profile [facility] Start: 11-20-2025 HPV TESTING HPV TESTING [facility] Start: 11-20-2025 PAP TESTING PAP TESTING [facility] Start: 01-13-2024 Mammography Mammogram Screening [facility] Start: 11-22-2022 Mammography [facility] Start: 10-17-2022 Covid-19 Vaccine () Covid-19 Vaccine () [facility] Start: 2022 Advance Directive Discussion Advance Directive Discussion [facility] Start: 2022 Bone Density Screening Bone Density Screening [facility] Start: 2022 Pneumococcal Vaccine: 65+ (1 - PCV) Pneumococcal Vaccine: 65+ (1 - PCV) [facility] Start: 02-16-2022 Depression Assessment Depression Assessment [facility] Start: 04-29-2021 Colonoscopy COLONOSCOPY [facility] Start: 04-29-2021 COLORECTAL CANCER SCREENING COLORECTAL CANCER SCREENING [facility] Start: 02-16-2021 DEPRESSION ASSESSMENT DEPRESSION ASSESSMENT [facility] Start: 12-07-2020 SHINGRIX VACCINE (2 of 2) SHINGRIX VACCINE (2 of 2) [facility] Start: 08-15-2019 DIABETES SCREEN DIABETES SCREEN [facility] Start: 08-15-2019 Diabetes Screening Diabetes Screening [facility] Start: 02-25-2018 Lipid 1996 panel - Serum or Plasma Lipid Screening [facility] Start: 02-25-2018 LIPID SCREEN LIPID SCREEN [facility] Start: 2017 RSV Vaccine (1 - 1-dose 60+ series) RSV Vaccine (1 - 1-dose 60+ series) [facility] Start: 2002 COLOGUARD (FIT-DNA) COLOGUARD (FIT-DNA) [facility] Start: [address] COLONOGRAPHY [facility] Start: 2002 FECAL OCCULT BLOOD FECAL OCCULT BLOOD [facility] Start: 2002 SIGMOIDOSCOPY SIGMOIDOSCOPY [facility] Start: 1975 HEPATITIS C SCREENING HEPATITIS C SCREENING [facility] Start: 1975 HIV SCREENING HIV SCREENING [facility] Bacteria identified in Urine by Culture URINE CULTURE Microbiology Routine Urinary frequency Burning with urination Ordered: 01/15/2022 [facility] Work Phone: Immunizations Immunization Date Immunization Notes Care Provider Fa gene 11-14-2022 influenza, injectabl e, quadrivalent, preservative free Geoff Carlson MD Work Phone: [facility] Work Phone: 07-25-2022 COVID-19 vaccine, unspecified formulation Geoff Carlson MD Work Phone: [facility] Work Phone: 11-15-2021 influenza, injectabl e, quadrivalent, preservative free Lazara Larry CENTRAL OFFICE INSTALLER.[facility] Work Phone: [facility] Work Phone: 01-16-2021 zoster vaccine recombinant Lazara Laron CENTRAL OFFICE INSTALLER.[employer] Work Phone: [facility] Work Phone: 01-16-2021 zoster vaccine, live Geoff Carlson MD Work Phone: [facility] Work Phone: 12-01-2020 Seasonal, quadrivale nt, recombinant, injectable influenza vaccine, preservative free Geoff Carlson MD Work Phone: [facility] Work Phone: 10-12-2020 zoster vaccine recombinant [facility] Work Phone: 10-12-2020 zoster vaccine, live Geoff Carlson MD Work Phone: [facility] Work Phone: 11-11-2019 influenza, injectabl e, quadrivalent, contains preservative [facility] Work Phone: 10-28-2018 Influenza, injectabl e, Madin [place] Canine Kidney, preservative free, quadrivalent [facility] Work Phone: 02-26-2018 tetanus and diphther ia toxoids, adsorbed, preservative free, for adult use (5 Lf of tetanus toxoid and 2 Lf of diphtheria toxoid) [facility] Work Phone: 04-02-2017 typhoid capsular polysaccharide vaccine [facility] Work Phone: 03-11-2017 influenza, injectabl e, quadrivalent, preservative free [facility] Work Phone: 11-29-2014 influenza nasal, unspecified formulation Geoff Carlson MD Work Phone: [facility] Work Phone: 11-29-2014 influenza virus vacc ine, unspecified formulation [facility] Work Phone: 06-13-2014 hepatitis A vaccine, adult dosage Lazara Larry CENTRAL OFFICE INSTALLER.[employer] Work Phone: [facility] Work Phone: 11-23-2012 influenza nasal, unspecified formulation Geoff Carlson MD Work Phone: [facility] Work Phone: 11-23-2012 influenza virus vacc ine, unspecified formulation [facility] 12-03-2011 influenza nasal, unspecified formulation Geoff Carlson MD Work Phone: [facility] Work Phone: 12-03-2011 influenza virus vacc ine, unspecified formulation [facility] 07-07-2011 hepatitis A vaccine, adult dosage Lazara Larry CENTRAL OFFICE INSTALLER.[employer] Work Phone: [facility] Work Phone: 07-07-2011 yellow fever vaccine Screen [facility] Work Phone: 05-19-2011 tetanus toxoid, redu adelso diphtheria toxoid, and acellular pertussis vaccine, adsorbed [facility] Work Phone: 04-02-2011 tetanus toxoid, redu adelso diphtheria toxoid, and acellular pertussis vaccine, adsorbed [facility] 12-27-2008 novel influenza-H1N1 -09, preservative-free, injectable [facility] Work Phone: 11-06-2008 influenza, seasonal, injectable [facility] Work Phone: 09-25-2003 hepatitis B vaccine, adult dosage [facility] Work Phone: 06-19-2003 hepatitis B vaccine, adult dosage [facility] Work Phone: 04-21-2003 hepatitis B vaccine, adult dosage [facility] Work Phone: 09-01-2001 tetanus and diphther ia toxoids, adsorbed, preservative free, for adult use (5 Lf of tetanus toxoid and 2 Lf of diphtheria toxoid) [facility] Work Phone: 01-12-1991 tetanus and diphther ia toxoids, adsorbed, preservative free, for adult use (5 Lf of tetanus toxoid and 2 Lf of diphtheria toxoid) [facility] Work Phone: 07-07-1986 typhoid capsular polysaccharide vaccine [facility] Work Phone: 10-17-1981 tetanus and diphther ia toxoids, adsorbed, preservative free, for adult use (5 Lf of tetanus toxoid and 2 Lf of diphtheria toxoid) [facility] Work Phone: Payers Date Payer Category Payer Medicare MEDICARE MEDICAR E A AND B [id number] 2022-Present [phone] [place] [address] Medicare [id number] 2022 Medicare [id number] 2021 Unknown [employer] BLUE ACCE SS PPO [id number] 2021-Present [phone] [address] [place] [address] PPO [id number] 1955 Unknown [id number] Private Health Insurance [id number] Social History Date Type Detail Facility Start: 10-24-2010 End: 01-08-2022 Tobacco smoking status NHIS Never smoked tobacco [facility] Start: 10-24-2010 End: 01-08-2022 Tobacco use and exposure Smokeless tobacco non-user [facility] Start: 11-20-2020 End: 01-12-2023 Alcohol intake Current drinker of alcohol (finding) [facility] Start: 03-01-2015 Alcohol Comment occ [facility] Start: 1955 Sex Assigned At Not on file [facility] Start: 10-18-2021 End: 01-15-2022 Exposure to SARS-CoV-2 (event) Not sure [facility] Start: 09-29-2017 End: 01-12-2023 History of Social function [facility] Start: 09-29-2017 End: 01-12-2023 Tobacco use panel [facility] Adult Depression Scr eening Assessment 0 [facility] Clinical Notes 11-22-2021 to 03-12-2023 Letter - Coordinator, Mammography - 01/12/2023 1:16 PM Geoff Eisenberg MD - 01/12/2023 8:12 AM ESTTelephone Encounter - Tatyana Solis MA - 01/18/2022 1:43 PM EST Note Date & Type Note Facility 03-12-2023 Note HNO ID: [id number] Author: CASANDRA SOW APRN.CANE BURNER Service: ? Author Type: Nurse Practitioner Type: Progress Notes Filed: 03/12/2023 09:40 Note Text: Female Pelvic Medicine AND Reconstructive Surgery Consult CHIEF COMPLAINT: Bobbi Jain is a 67 year old female who presents for consultation requested by Dr. Carlson for an opinion regarding Pelvic Organ Prolapse . HISTORY OF PRESENT ILLNESS: Here today for concerns of prolapse. States she was told she had prolapse after her first vaginal delivery. Started to notice prolapse in 2005 but was not bothersome. Within the past month, has noticed a vaginal bulge protruding past vaginal opening which is bothering her now. States that she feels worsening pelvic pressure and prolapse is rubbing and causing discomfort as well. Has tried a #4 and #5 milex RWS pessary. #4 displaced in the office, #5 was uncomfortable. States she occasional feels like it takes her longer to empty her bladder when her prolapse is more noticeable, but always feels like she is completely emptying. Denies concerns of constipation, states since starting amitriptyline for headaches, her stool is harder but is still easy to pass. Denies urinary leakage with activity/coughing/laughing/sneez ing. Is sexually active, no concerns. Has been following with a urologist in [place] for recurrent UTIs. Started on vaginal estrogen cream in September and has not had UTI since. Medical and Symptom History: PATIENT LIAISON HISTORY: Last Pap: Date:2020, normal; Last Mammogram: Her last mammogram was 2022. She has no history of an abnormal mammogram LMP: Patient's last menstrual period was 10/28/2010.; Menopause yes: Menstrual history: Menarche: 17; Deliveries: History of third or fourth degree laceration: No, had episiotomy Weight of largest baby: 9lb7.5oz Sexual function Sexually active: Yes, no issues [id number] Do you: Usually experience pressure in the lower abdomen? No (0) Usually experience heaviness or dullness in the pelvic area? Yes, moderately bothersome (3) Usually have a bulge or something falling out that you can see or feel in your vaginal area? Yes, moderately bothersome (3) Ever have to push on the vagina or around the rectum to have or complete a bowel movement? No (0) Usually experience a feeling of incomplete bladder emptying? No (0) Ever have to push up on a bulge in the vaginal area with your fingers to start or complete urination? No (0) Feel you need to strain too hard to have a bowel movement? No (0) Feel you have not completely emptied your bowels at the end of a bowel movement? No (0) Usually lose stool beyond your control if your stool is well formed? No (0) Usually lose stool beyond your control if your stool is loose? No (0) Usually lose gas from the rectum beyond your control? No (0) Usually have pain when you pass your stool? No (0) Experience a strong sense of urgency and have to orozco to the bathroom to have a bowel movement? No (0) Does part of your bowel ever pass through the rectum and bulge outside during or after a bowel movement? No (0) Usually experience frequent urination? No (0) Usually experience urine leakage associated with a feeling of urgency, that is, a strong sensation of needing to go to the bathroom? No (0) Usually experience urine leakage related to coughing, sneezing or laughing? No (0) Usually experience small amounts of urine leakage (that is, drops)? Yes, not at all bothersome (1) Usually experience difficulty emptying your bladder? No (0) Usually experience pain or discomfort in the lower abdomen or genital region? No (0) Do you have pain associated with your prolapse (not pressure or fullness) No PAST SURGICAL HISTORY Procedure Laterality Date COLONOSCOPY 04/30/2011 COLONOSCOPY SCREENING 09/2022 DILATION AND CURETTAGE DXAND/THER NONOBSTETRIC Dilation AND curettage PAST SURGICAL HISTORY OF 10/18/2007 Aspiration breast cyst right breast PAST SURGICAL HISTORY OF 11/16/2008 Aspiration of Cyst in Left Breast PAST MEDICAL HISTORY Diagnosis Date Osteoporosis Other malignant neoplasm of other specified sites of skin Spring 1998 Left Breast- Melanoma Recurrent UTI Rosacea Face Vasovagal syncope FAMILY HISTORY Problem Relation Age of Onset No Known Problems Mother No Known Problems Father Cancer Brother testicular Current Outpatient Medications Medication Sig cranberry conc/C/Bacill coag (AZO CRANBERRY PLUS PROBIOTIC ORAL) CALCIUM-VITAMIN D3 ORAL D-Mannose 99 % powd romosozumab-aqqg (EVENITY) 210mg/2.34mL ( 105mg/1.17mLx2) injection Inject 210 mg subcutaneously once every month. nortriptyline (PAMELOR) 10 mg capsule Ascorbic Acid 1,000 mg tablet Take 1,000 mg by mouth once daily. Alpha Lipoic Acid 600 mg cap Take by mouth. cholecalciferol (VITAMIN D3) 1,000 unit tab tablet Take 2,000 Units by mouth once daily. multivitamin tablet Take 1 tablet by (more content not included)... [facility] 02-18-2023 Note HNO ID: [id number] Author: Geoff Carlson MD Service: ? Author Type: Physician Type: Progress Notes Filed: 02/18/2023 12:06 PM Note Text: 67 year old female presents for a pessary fitting due to uterovaginal prolapse. She has not had vaginal discharge and bleeding. She does use her prescribed estrogen cream. Exam: No bleeding or vaginal irritation seen. Pelvic:external genitalia normal, normal Bartholin's glands, urethra, Esbon's glands, no vulvar lesions, no cervical lesions, physiologic discharge present, normal appearing perineal body and perianal region, cystocele to introitus, rectocele 1st degree, cervical prolapse 1st degree A size 5 ring with support was placed without difficulty. Have also tried a size 4 ring with support Impression/plan:uterovaginal prolapse 1) Advised of need to remove it if has diffulties emptying her bladder/bowel. Patient advised to remove and clean with warm water and soap every week. Will return to clinic in 6-8 weeks if neededfor f/u evaluation. Discussed pros/cons pessary. She is comfortable w/ plan Geoff Carlson MD [facility] 01-12-2023 Miscellaneous Notes January 13, 2023 PID: [id number] Bobbi Jain [address] [place] [address] Dear Ms. Jain, We are pleased to inform you that the results of your recent breast imaging exam on 01/12/2023 are normal. Your mammogram demonstrates that you have dense breast tissue, which could hide abnormalities. Dense breast tissue, in and of itself, is a relatively common condition. Therefore, this information is not provided to cause undue concern; rather, it is to raise your awareness and promote discussion with your health care provider regarding the presence of dense breast tissue in addition to other risk factors. Early detection of cancer is very important. We also understand recommendations regarding breast cancer screening are controversial. Please discuss with your primary care provider which strategy is best for you and whether a mammogram is right for you. Your imaging studies and report will be kept on file at [facility] as part of your permanent medical record and are available for your continuing care. Thank you for allowing us to help in meeting your health care needs. Sincerely, Dr. Pak Interpreting Radiologist [facility] (Normal over 40) documented in this encounter [facility] 01-12-2023 Note HNO ID: [id number] Author: Geoff Carlson MD Service: ? Author Type: Physician Type: Progress Notes Filed: 01/12/2023 8:50 AM Note Text: BOBBI PETERSEN is a 67 year old who presents for an annual gynecologic exam with complaints, prolapse more bothersome, tried pessary in the past and felt like bladder came down past it . Postmenopausal: yes HRT use: No. 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 LMP: 10/28/2010, Postmenopausal Age at Menarche: Age at First : Age at Menopause: Gum Machine Operator History Comments: Sexual Activity: Yes; Male Contraception: Vasectomy PAST MEDICAL HISTORY Diagnosis Date Other malignant neoplasm of other specified sites of skin Spring 1998 Left Breast- Melanoma Recurrent UTI Rosacea Face Vasovagal syncope PAST SURGICAL HISTORY Procedure Laterality Date COLONOSCOPY 04/30/2011 DILATION AND CURETTAGE DXAND/THER NONOBSTETRIC Dilation AND curettage PAST SURGICAL HISTORY OF 10/2007 Aspiration breast cyst right breast PAST SURGICAL HISTORY OF 11/2008 Aspiration of Cyst in Left Breast FAMILY HISTORY Problem Relation Age of Onset Cancer Brother testicular SOCIAL HISTORY Social History Tobacco Use Smoking status: Never Smokeless tobacco: Never Vaping Use Vaping Use: Never used Substance Use Topics Alcohol use: Yes Comment: occ Drug use: No REVIEW OF SYSTEMS Abdomen: No abdominal pain, nausea, vomiting, diarrhea, or constipation. No bloating, early satiety, indigestion, or increased flatulence. Bladder: No dysuria, gross hematuria, urinary frequency, urinary urgency, or incontinence Breast: No breast lumps, nipple d/c, overlying skin changes, redness or skin retraction Allergies and current medication updated:Yes EXAM: LMP 10/28/2010 GENERAL: pleasant, female in no apparent distress HEENT: Normocephalic, atraumatic, mucus membranes moist, and no lesions NECK: Supple, full range of motion, no adenopathy, and thyroid normal DERMATOLOGY: Normal, without lesions, non-icteric, and non-hirsute BREAST: soft, non-tender, symmetric, no dominant mass, normal nipple-areolar complex, no lymphadenopathy, and no nipple discharge CHEST: Normal inspiratory effort ABDOMEN: soft, non-tender, and no masses PELVIC: external genitalia normal, normal Bartholin's glands, urethra, Esbon's glands, no vulvar lesions, no cervical lesions, physiologic discharge present, normal appearing perineal body and perianal region, cystocele 1st degree, rectocele 1st degree, cervical prolapse 1st degree BIMANUAL: uterus normal size, shape and consistency, no adnexal masses, and non-tender RECTOVAGINAL: deferred. NEURO: alert and oriented x3,exam grossly non-focal EXTREMITIES: normal ASSESSMENT/PLAN: 1) Health maintenance: Pap/HPV screening no longer needed Mammogram ordered Colon cancer screening: up to date with screening 2) Follow up one year or sooner as needed return for pessary ffitting, had d/w her about possible surgery- would refer to urogyn Geoff Carlson MD [facility] 01-12-2023 Note HNO ID: [id number] Author: [facility] M[facility] Service: ? Author Type: Postal Mail Carrier Type: Progress Notes Filed: 01/12/2023 7:57 AM Note Text: Radiology Service Progress Note PATIENT NAME: Bobbi Jain DATE OF SERVICE: January 12, 2023 TIME: 7:34 AM PATIENT IDENTITY VERIFICATION COMPLETED USING TWO (2) IDENTIFIERS: Name and Date of confirmed by patient verbally. FALL SCREENING: Has the patient had 2 falls in the last year or 1 fall with injury or currently using an Ambulatory Assistive Device (Walker, Cane, Wheelchair, Crutches, etc.)? No PATIENT GENDER DATA: Female. status: : No status: NO. PATIENT RELEVANT IMPLANT DATA REVIEWED: Not Applicable RADIOLOGY DEPARTMENT: Mammography PERIPHERAL IV DATA: Not applicable SIGNED BY: Sandra Don January 12, 2023 7:34 AM [facility] 01-12-2023 History of Presen t illness Narrative BOBBI PETERSEN is a 67 year old who presents for an annual gynecologic exam with complaints, prolapse more bothersome, tried pessary in the past and felt like bladder came down past it . Postmenopausal: yes HRT use: No. 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 LMP: 10/28/2010, Postmenopausal Age at Menarche: Age at First : Age at Menopause: Gum Machine Operator History Comments: Sexual Activity: Yes; Male Contraception: Vasectomy PAST MEDICAL HISTORY Diagnosis Date Other malignant neoplasm of other specified sites of skin Spring 1998 Left Breast- Melanoma Recurrent UTI Rosacea Face Vasovagal syncope PAST SURGICAL HISTORY Procedure Laterality Date COLONOSCOPY 04/30/2011 DILATION & CURETTAGE DX&/THER NONOBSTETRIC Dilation & curettage PAST SURGICAL HISTORY OF 10/2007 Aspiration breast cyst right breast PAST SURGICAL HISTORY OF 11/2008 Aspiration of Cyst in Left Breast FAMILY HISTORY Problem Relation Age of Onset Cancer Brother testicular SOCIAL HISTORY Social History Tobacco Use Smoking status: Never Smokeless tobacco: Never Vaping Use Vaping Use: Never used Substance Use Topics Alcohol use: Yes Comment: occ Drug use: No REVIEW OF SYSTEMS Abdomen: No abdominal pain, nausea, vomiting, diarrhea, or constipation. No bloating, early satiety, indigestion, or increased flatulence. Bladder: No dysuria, gross hematuria, urinary frequency, urinary urgency, or incontinence Breast: No breast lumps, nipple d/c, overlying skin changes, redness or skin retraction Allergies and current medication updated:Yes EXAM: LMP 10/28/2010 GENERAL: pleasant, female in no apparent distress HEENT: Normocephalic, atraumatic, mucus membranes moist, and no lesions NECK: Supple, full range of motion, no adenopathy, and thyroid normal DERMATOLOGY: Normal, without lesions, non-icteric, and non-hirsute BREAST: soft, non-tender, symmetric, no dominant mass, normal nipple-areolar complex, no lymphadenopathy, and no nipple discharge CHEST: Normal inspiratory effort ABDOMEN: soft, non-tender, and no masses PELVIC: external genitalia normal, normal Bartholin's glands, urethra, Esbon's glands, no vulvar lesions, no cervical lesions, physiologic discharge present, normal appearing perineal body and perianal region, cystocele 1st degree, rectocele 1st degree, cervical prolapse 1st degree BIMANUAL: uterus normal size, shape and consistency, no adnexal masses, and non-tender RECTOVAGINAL: deferred. NEURO: alert and oriented x3,exam grossly non-focal EXTREMITIES: normal ASSESSMENT/PLAN: 1) Health maintenance: Pap/HPV screening no longer needed Mammogram ordered Colon cancer screening: up to date with screening 2) Follow up one year or sooner as needed return for pessary ffitting, had d/w her about possible surgery- would refer to urogyn Geoff Carlson MD documented in this encounter [facility] 01-18-2022 Miscellaneous Notes Patient notified of results, verbalized understanding of instructions given. Tatyana Solis MA Left message for pt to call back. Maddy Botello MA Please call and let patient know that her urine culture did not show an infection. Would recommend follow-up with PCP for continued symptoms. If antibiotics are helping can finish those otherwise can discontinue. documented in this encounter [facility] 01-15-2022 History of Presen t illness Narrative This note was created using [employer]. Subjective Bobbi Jain is a 66 year old female. 66 year old with PMH migraines presents for complaints of UTI. Acute onset of symptoms today +frequency +burning Denies abdominal pain. Denies flank pain Denies skin rash or lesions. Denies vaginal bleeding. Denies vaginal discharge. Recently sexually active. Denies concerns for STI. Endorses she had a UTI, 3 weeks ago, and placed on Macrobid for 7 days. (Dr. Kevin ) The history is provided by the patient. No air box tester was used. UTI This is a new problem. The current episode started less than 1 hour ago. The problem occurs every urination. The problem has been gradually worsening. The quality of the pain is described as burning. The pain is at a severity of 5/10. The pain is moderate. There has been no fever. She is Sexually active. There is No history of pyelonephritis. Associated symptoms include frequency and urgency. Pertinent negatives include no chills, no sweats, no nausea, no vomiting, no discharge, no hematuria, no hesitancy, no possible and no flank pain. She has tried nothing for the symptoms. Her past medical history does not include kidney stones, single kidney, urological procedure, recurrent UTIs, urinary stasis or catheterization. PAST MEDICAL HISTORY Diagnosis Date Other malignant neoplasm of other specified sites of skin Spring 1998 Left Breast- Melanoma Recurrent UTI Rosacea Face Vasovagal syncope PAST SURGICAL HISTORY Procedure Laterality Date COLONOSCOPY 04/30/2011 DILATION & CURETTAGE DX&/THER NONOBSTETRIC Dilation & curettage PAST SURGICAL HISTORY OF 10/2007 Aspiration breast cyst right breast PAST SURGICAL HISTORY OF 11/2008 Aspiration of Cyst in Left Breast ALLERGIES Sulfa (Sulfonamide Antibiotics) MEDICATIONS nortriptyline (PAMELOR) 10 mg capsule Ascorbic Acid 1,000 mg tablet Take 1,000 mg by mouth once daily. Alpha Lipoic Acid 600 mg cap Take by mouth. alendronate (FOSAMAX) 70 mg tablet Take by mouth once each week. cholecalciferol (VITAMIN D3) 1,000 unit tab tablet Take 2,000 Units by mouth once daily. multivitamin tablet Take 1 tablet by mouth once daily. cephALEXin (KEFLEX) 500 mg capsule Take 1 capsule by mouth twice daily for 7 days. FAMILY HISTORY Problem Relation Age of Onset Cancer Brother testicular Social History Tobacco Use Smoking status: Never Smokeless tobacco: Never Vaping Use Vaping Use: Never used Substance Use Topics Alcohol use: Yes Comment: occ Drug use: No Review of Systems Constitutional: Negative for chills, fatigue and fever. Eyes: Negative for pain, discharge and itching. Respiratory: Negative for apnea, cough, choking, chest tightness, shortness of breath and stridor. Cardiovascular: Negative for chest pain and leg swelling. Gastrointestinal: Negative for abdominal pain, nausea and vomiting. Genitourinary: Positive for dysuria, frequency and urgency. Negative for flank pain, hematuria and hesitancy. Musculoskeletal: Negative for arthralgias, back pain and gait problem. Skin: Negative for color change, rash and wound. Allergic/Immunologic: Negative for environmental allergies, food allergies and immunocompromised state. Neurological: Negative for dizziness and facial asymmetry. Hematological: Negative for adenopathy. Does not bruise/bleed easily. Psychiatric/Behavioral: Negative for agitation and behavioral problems. Objective BP 124/72 Pulse 74 Temp 36.1 C (96.9 F) Resp 16 Wt 49.9 kg (110 lb) LMP 10/28/2010 SpO2 95% BMI 19.18 kg/m Physical Exam Vitals and nursing note reviewed. Constitutional: General: She is not in acute distress. Appearance: Normal appearance. She is normal weight. She is not ill-appearing, toxic-appearing or diaphoretic. HENT: Head: Normocephalic and atraumatic. Right Ear: Ear canal and external ear normal. Left Ear: Ear canal and external ear normal. Nose: Nose normal. No congestion or rhinorrhea. Mouth/Throat: Mouth: Mucous membranes are moist. Pharynx: No oropharyngeal exudate or posterior oropharyngeal erythema. Eyes: General: Right eye: No discharge. Left eye: No discharge. Extraocular Movements: Extraocular movements intact. Conjunctiva/sclera: Conjunctivae normal. Pupils: Pupils are equal, round, and reactive to light. Cardiovascular: Rate and Rhythm: Normal rate and regular rhythm. Pulses: Normal pulses. Heart sounds: Normal heart sounds. No murmur heard. No friction rub. Pulmonary: Effort: Pulmonary effort is normal. No respiratory distress. Breath sounds: Normal breath sounds. No stridor. No wheezing, rhonchi or rales. Chest: Chest wall: No tenderness. Abdominal: General: Abdomen is flat. There is no distension. Palpations: Abdomen is soft. There is no mass. Tenderness: There is no abdominal tenderness. There is no right CVA tenderness, left CVA tenderness, guarding or rebound. Hernia: No hernia is present. Musculoskeletal: General: No swelling, tenderness, deformity or signs of injury. Normal range of motion. Cervical back: Normal range of motion and neck supple. No rigidity. Right lower leg: No edema. Left lower leg: No edema. Lymphadenopathy: Cervical: No cervical adenopathy. Skin: General: Skin is warm and dry. Capillary Refill: Capillary refill takes less than 2 seconds. Coloration: Skin is not jaundiced or pale. Findings: No bruising, erythema, lesion or rash. Neurological: General: No focal deficit present. Mental Status: She is alert and oriented to person, place, and time. Cranial Nerves: No cranial nerve deficit. Sensory: No sensory deficit. Motor: No weakness. Coordination: Coordination normal. Gait: Gait normal. Psychiatric: Mood and Affect: Mood normal. Behavior: Behavior normal. Thought Content: Thought content normal. Judgment: Judgment normal. Assessment and Plan ASSESSMENT/PLAN: 1. Urinary frequency - ICD9: 788.41, ICD10: R35.0 (primary diagnosis) acute - UA positive for ruth esterase - Send urine for culture - Begin treatment with Keflex for 7 days - Patient education for prevention given - UA DIP, URINE (POC) - URINE CULTURE 2. Burning with urination - ICD9: 788.1, ICD10: R30.0 Acute ??? Recurrent She was placed on Macrobid 3 weeks ago - UA positive for ruth esterase - Send urine for culture - Begin treatment with Keflex for 7 days - Patient education for prevention given - UA DIP, URINE (POC) - URINE CULTURE Lazara Larry APRN.RAJAN documented in this encounter [facility] 11-22-2021 Miscellaneous Notes November 22, 2021 PID: [id number] Bobbi PatelCecile Jain [address] [place] [address] Dear Cecile Jain, We are pleased to inform you that the results of your recent breast imaging exam on 11/22/2021 are normal. Your mammogram demonstrates that you have dense breast tissue, which could hide abnormalities. Dense breast tissue, in and of itself, is a relatively common condition. Therefore, this information is not provided to cause undue concern; rather, it is to raise your awareness and promote discussion with your health care provider regarding the presence of dense breast tissue in addition to other risk factors. Early detection of cancer is very important. We also understand recommendations regarding breast cancer screening are controversial. Please discuss with your primary care provider which strategy is best for you and whether a mammogram is right for you. Your imaging studies and report will be kept on file at [facility] as part of your permanent medical record and are available for your continuing care. Thank you for allowing us to help in meeting your health care needs. Sincerely, Dr. Wright Interpreting Radiologist [facility] [place] (Normal over 40) documented in this encounter [facility] Urinary frequency- Primary Burning with urination Dysuria [facility] Diagnosis Encounter for gynecological examination (general) (routine) without abnormal findings- Primary Encounter for screening mammogram for breast cancer [facility] Diagnostic Procedure Only (Routine) - Closed Specialty Diagnoses / Procedures Referred By Simon sanz Referred To Contact [facility] Diagnoses Encounter for gynecological examination (general) (routine) without abnormal findings Encounter for screening for human papillomavirus (HPV) Pap smear for cervical cancer screening Encounter for screening mammogram for breast cancer Procedures YINKA SCREENING SCREENING MAMMOGRAPHY BI 2-VIEW BREAST INC Geoff Loco MD [address] [place] [address] [facility] [address] [address] Referral ID Status Reason Start Date Expiration Date V isits Requested Visits Authorized [id number] Closed Auto-Generate d Referral 11/20/2020 12/20/2021 1 1 [facility] [place] for referral (narrative)* Diagnostic Procedure Only (Routine) - Authorized Specialty Diagnoses / Procedures Referred By Simon sanz Referred To Contact [facility] Diagnoses Encounter for screening mammogram for breast cancer Procedures YINKA SCREENING W MARLYN SCREENING DIGITAL BREAST TOMOSYNTHESIS BI SCREENING MAMMOGRAPHY BI 2-VIEW BREAST INC Geoff Loco MD [address] [place] [address] [facility] [address] [place] [address] Referral ID Status Reason Start Date Expiration Date Visits Requested Visits Authorized [id number] Authorized Auto-Generat ed Referral 3 02/11/2024 1 1 A [facility] [place] for visit Narrative* Diagnostic Procedure Only (Routine) - Closed Specialty Diagnoses / Procedures Referred By Simon sanz Referred To Contact [facility] Diagnoses Encounter for gynecological examination (general) (routine) without abnormal findings Encounter for screening for human papillomavirus (HPV) Pap smear for cervical cancer screening Encounter for screening mammogram for breast cancer Procedures YINKA SCREENING SCREENING MAMMOGRAPHY BI 2-VIEW BREAST INC CAD Geoff Carlson MD [address] [place] [address] [facility] [address] [place] [address] Referral ID Status Reason Start Date Expiration Date V isits Requested Visits Authorized [id number] Closed Auto-Generate d Referral 11/20/2020 12/20/2021 1 1 [facility] Summary Purpose Family History No Family History Records FoundNo Family History Records FoundNo Family History Records Found Advance Directives No Advanced Directives Records FoundNo Advanced Directives Records FoundNo Advanced Directives Records Found Additional Source Comments INFORMATION SOURCE (unrecogn ized section and content) DATE CREATED AUTHOR AUTHOR'S ORGANIZ ATION 06/22/2018 [employer] DATE CREATED AUTHOR AUTHOR'S ORGANIZ ATION 03/13/2023 [facility] Source Comments (unrecognize d section and content) In the event this informatio n is protected by the Federal Confidentiality of Alcohol and Drug Abuse Patient Records regulations: The Federal rules restrict any use of the information to criminally investigate or prosecute any alcohol or drug abuse patient.[facility] the event this information is protected by the Federal Confidentiality of Alcohol and Drug Abuse Patient Records regulations: The Federal rules restrict any use of the information to criminally investigate or prosecute any alcohol or drug abuse patient.[facility] the event this information is protected by the Federal Confidentiality of Alcohol and Drug Abuse Patient Records regulations: The Federal rules restrict any use of the information to criminally investigate or prosecute any alcohol or drug abuse patient.[facility] the event this information is protected by the Federal Confidentiality of Alcohol and Drug Abuse Patient Records regulations: The Federal rules restrict any use of the information to criminally investigate or prosecute any alcohol or drug abuse patient.[facility] Hospital[facility] the event this information is protected by the Federal Confidentiality of Alcohol and Drug Abuse Patient Records regulations: The Federal rules restrict any use of the information to criminally investigate or prosecute any alcohol or drug abuse patient.[facility] Hospital[facility] the event this information is protected by the Federal Confidentiality of Alcohol and Drug Abuse Patient Records regulations: The Federal rules restrict any use of the information to criminally investigate or prosecute any alcohol or drug abuse patient.[facility] Care Teams (unrecognized sec tion and content) Apparel Manager Relationship Specialty Start Date End Date Tu Kevin MD [address] [facility] [address] [place] [address] PCP - General Family Medicine 10/07/17 Apparel Manager Relationship Specialty Start Date End Date Tu Kevin MD [address] [facility] [address] [place] [address] PCP - General Family Medicine 10/07/17 Apparel Manager Relationship Specialty Start Date End Date Tu Kevin MD [address] [facility] [address] [place] [address] PCP - General Family Medicine 10/07/17 Apparel Manager Relationship Specialty Start Date End Date Tu Kevin MD [address] [place] [address] [address] [place] [address] PCP - General Family Medicine 10/07/17 Apparel Manager Relationship Specialty Start Date End Date Tu Kevin MD [address] [place] [address] [address] [place] [address] PCP - General Family Medicine 10/07/17 Reason for Visit (unrecogniz ed section and content) Reason Comments Results Reason Comments [facility] FOR RECORDS PERTAINING TO PATIENTS WHO ARE OR HAVE BEEN ENROLLED IN A CHEMICAL DEPENDENCY/SUBSTANCEABUSE PROGRAM, SOME INFORMATION MAY BE OMITTED. This clinical summary was aggregated from multiple sources. Caution should be exercised in using it in the provision of clinical care. This summary normalizes information from multiple sources, and as a consequence, information in this document may materially change the coding, format and clinical context of patient data. In addition, data may be omitted in some cases. CLINICAL DECISIONS SHOULD BE BASED ON THE PRIMARY CLINICAL RECORDS. [employer] [facility]. provides no warranty or guarantee of the accuracy or completeness of information in this document.
== END 2023-03-26 13:47 | disposition home or self-care (01) ==
LOC: MEDOUTP 13:47
PROVIDERS: PCP Family Medicine; Referring Provider Internal Medicine Endocrinology, Diabetes & Metabolism; Visit Provider Internal Medicine Endocrinology, Diabetes & Metabolism
DX: M81.0 Age-related osteoporosis without current pathological fracture (principal); E55.9 Vitamin D deficiency, unspecified
CPT/HCPCS: 96372; J3111

== ENCOUNTER 2023-04-23 14:30 | Outpatient (CLI) | payer MEDICARE, OTHER, SELFPAY ==
[2023-04-23 14:40] VITALS: BP 118/65; PULSE 80; RESP 16; TEMP 36.3; O2SAT 98
[2023-04-23] MEDS: Romosozumab-AQQG 210 MG/2.34 ML Syringe SC (14:44)
== END 2023-04-23 14:31 | disposition home or self-care (01) ==
LOC: MEDOUTP 14:30
PROVIDERS: PCP Family Medicine; Referring Provider Internal Medicine Endocrinology, Diabetes & Metabolism; Visit Provider Internal Medicine Endocrinology, Diabetes & Metabolism
DX: M81.0 Age-related osteoporosis without current pathological fracture (principal); E55.9 Vitamin D deficiency, unspecified
CPT/HCPCS: 96372; J3111

== ENCOUNTER 2023-05-21 14:29 | Outpatient (CLI) | payer MEDICARE, OTHER, SELFPAY ==
[2023-05-21 14:48] VITALS: BP 117/70; PULSE 77; RESP 16; TEMP 36.6; O2SAT 99
[2023-05-21] MEDS: Romosozumab-AQQG 210 MG/2.34 ML Syringe SC (15:10)
== END 2023-05-21 14:30 | disposition home or self-care (01) ==
LOC: MEDOUTP 14:29
PROVIDERS: PCP Family Medicine; Referring Provider Internal Medicine Endocrinology, Diabetes & Metabolism; Visit Provider Internal Medicine Endocrinology, Diabetes & Metabolism
DX: M81.0 Age-related osteoporosis without current pathological fracture (principal); E55.9 Vitamin D deficiency, unspecified
CPT/HCPCS: 96372; J3111

== ENCOUNTER → 2023-06-08 | Outpatient (CLI) | payer MEDICARE, OTHER, SELFPAY ==
[2023-06-08 15:56] LABS: Anion Gap 3 (5-15); BUN 14 mg/dL (7-18); BUN/Creat Ratio 17.7 RATIO (10-20); Calcium,Total 9.5 mg/dL (8.5-10.1); Chloride 108 mmol/L (98-107); Cholesterol 190 mg/dL (200); Creatinine, Serum 0.79 mg/dL (0.55-1.02); EST Glomerular Filtration Rate 77 mL/min (>60); Est Glom Filt Rate - Afr Amer 93 mL/min (>60); Glucose 90 mg/dL (74-106); High Density Lipoprotein 54 mg/dL; Potassium 4.4 mmol/L (3.5-5.1); Sodium Level 141 mmol/L (136-145); Triglycerides 86 mg/dL; Very Low Density Lipoprotein 17 mg/dL (5-40)
[2023-06-08 16:03] LABS: Vitamin D,25 Hydroxy 60.7 ng/mL
== END | disposition home or self-care (01) ==
LOC: MFPLAB 11:47
PROVIDERS: PCP Family Medicine; Visit Provider Family Medicine
DX: Z00.00 Encounter for general adult medical examination without abnormal findings (principal); E78.5 Hyperlipidemia, unspecified; M81.0 Age-related osteoporosis without current pathological fracture
CPT/HCPCS: 36415; 80048; 80061; 82306

== ENCOUNTER → 2024-03-15 | Outpatient (CLI) | payer MEDICARE, OTHER, SELFPAY ==
[2024-03-17 15:07] LABS: Lead, Blood Adult 16+yrs < 1.0 ug/dL (0.0-3.4)
== END | disposition home or self-care (01) ==
LOC: MFPLAB 15:31
PROVIDERS: PCP Family Medicine; Referring Provider Family Medicine; Visit Provider Family Medicine
DX: Z13.88 Encounter for screening for disorder due to exposure to contaminants (principal)
CPT/HCPCS: 36415; 83655

== ENCOUNTER → 2024-09-15 | Outpatient (CLI) | payer MEDICARE, OTHER, SELFPAY ==
[2024-09-15 12:58] LABS: AST(SGOT) 19 U/L (<=31); Alanine Aminotransfer ALT/SGPT 15 U/L (<=34); Albumin, Serum 4.2 g/dL (3.4-4.8); Alkaline Phosphatase 57 U/L (35-104); Anion Gap 9 (5-15); BUN 16 mg/dL (4-19); BUN/Creat Ratio 18.5 RATIO (10-20); Calcium,Total 9.0 mg/dL (7.6-11.0); Carbon Dioxide 26.4 mmol/L (21.0-32.0); Chloride 104 mmol/L (98-108); Globulin 2.1 g/dL (2.2-4.2); Glucose 88 mg/dL (70-99); Potassium 4.1 mmol/L (3.3-5.1)
[2024-09-15 15:42] LABS: Vitamin D,25 Hydroxy 60.4 ng/mL (30-100)
== END | disposition home or self-care (01) ==
LOC: MTLAB 10:33
PROVIDERS: Internal Medicine Endocrinology, Diabetes & Metabolism; PCP Family Medicine; Referring Provider Family Medicine; Visit Provider Family Medicine
DX: M81.0 Age-related osteoporosis without current pathological fracture (principal); E55.9 Vitamin D deficiency, unspecified
CPT/HCPCS: 80053; 82306